=== PATIENT | female | born 1990 | race Hispanic/Latino ===

== ENCOUNTER 2019-03-02 13:58 | Inpatient (IN) | payer MEDICAID ==
[2019-03-02] MEDS ORDERED: LACTATED RINGERS 1,000 ML ONE (14:24)
[2019-03-02] MEDS ORDERED: LACTATED RINGERS 500 ML IV ONE ×2 (14:24→14:26)
[2019-03-02] MEDS ORDERED: MAGNESIUM SULFATE 40GM/1000ML 40 GM/1,000 ML BAG IV ONE ×2 (14:25→14:31)
[2019-03-02] MEDS ORDERED: MAGNESIUM SULFATE 4GM/100ML 4 GM/100 ML BAG IV ONE (14:26)
[2019-03-02] MEDS ORDERED: BRETHINE SUB-Q ONE (14:37)
[2019-03-02 14:55] LABS: Hematocrit 36.3 % (30.3-42.9); Hemoglobin 12.4 gm/dl (10.1-14.3); Mean Corpuscular HGB Conc 34 % (30-34); Mean Corpuscular Volume 86 fl (79-97); Platelet Count 194 K/mm3 (140-440); Red Blood Count 4.22 M/mm3 (3.65-5.03); Red Cell Distribution Width 12.8 % (13.2-15.2)
[2019-03-02] MEDS ORDERED: MAGNESIUM SULFATE 40GM/1000ML 40 GM/1,000 ML BAG IV SCH (15:00)
--- NOTE | 2019-03-02 15:24 | Ultrasound Report ---
US OB limited INDICATION / CLINICAL INFORMATION: presentation. COMPARISON: None available. FINDINGS: heart rate is 158. lie is cephalic. The cervix appears mildly dilated. IMPRESSION: 1. lie is currently cephalic. 2. The cervix is dilated. Signer Name: Darell Guzman MD Signed: 03/02/2019 3:19 PM Workstation Name: [id number]
[2019-03-02 15:36] LABS: Band Neutrophils # (Manual) 0.3 K/mm3; Basophils % (Manual) 0 % (0.0-1.8); Eosinophils % (Manual) 0 % (0.0-4.3); Total Cells Counted 100
[2019-03-02 15:37] LABS: Platelet Estimate Consistent w Auto; RBC Morphology Normal
[2019-03-02 15:42] LABS: Hepatitis C Virus Antibody Non-Reactive (NonReactive)
[2019-03-02 15:53] LABS: Amphetamine Screen,Urine PRESUMPTIVE NEGATIVE; Benzodiazepines Screen,Urine PRESUMPTIVE NEGATIVE; Cannabinoid Screen,Urine PRESUMPTIVE NEGATIVE; Cocaine Screen,Urine PRESUMPTIVE NEGATIVE; Methadone Screen,Urine PRESUMPTIVE NEGATIVE; Opiate Screen,Urine PRESUMPTIVE NEGATIVE
[2019-03-02 15:54] LABS: Amorphous Crystals,Urine Few; Bilirubin,Urine NEG (Negative); Blood,Urine NEG (Negative); Color,Urine Yellow (Yellow); Mucus,Urine 2+ /HPF; Protein,Urine <15 mg/dL mg/dL (Negative); Urobilinogen,Urine < 2.0 mg/dL (<2.0)
[2019-03-02] MEDS: CELESTONE SOLUSPAN IM SCH (16:00)
[2019-03-02] MEDS ORDERED: TYLENOL PO PRN (17:28)
[2019-03-02] MEDS: AMPICILLIN/NS 2 GM/100 ML 2 GM/100 ML BAG IV SCH (17:50)
[2019-03-02] MEDS ORDERED: CALCIUM GLUCONATE 1,000 MG in NACL 0.9% 100 ML IV ONE (20:08)
--- NOTE | 2019-03-02 20:26 | Consultation ---
Consult Note - Parent Education I met with parent(s) and discussed the following:: Need for NICU admission, Poss ible need for intubation and surfactant or other resp support, Temperature regulation, Head ultrasounds to evaluate IVH, Eye exams for ROP screening, Possible need for IV fluids/TPN and IV antibiotics, Possible need for umbilical lines, Importance of providing breast milk & encouraged pumping aft delivery (Mother is interested in and bottle feeding), Donor breast milk if baby meets criteria after , Slow feeding advancement and monitoring of tolerance. NG/OG feeds, Need to monitor for jaundice, Data for survival & survival without significant co-morbidities Parent(s) demonstrated understanding of all the information:: No Assessment and Plan - Assessment Gestation:: 32.6 (32 6/7 weeker) Estimated Weight: N/A Baby's gender: Female Baby's name: Helen Additional Comment: 28YO mother admitted for PT contractions. PJ 04/21/19; 32 6/7 weeker. Mother is on mag and received x1 dose of betamethasone. - Plan Plan: Agree with Mag & steroids Will attend delivery Please call NICU with questions
[2019-03-02] MEDS: INDOCIN PO SCH (20:38)
--- NOTE | 2019-03-02 23:17 | History and Physical Report ---
History of Present Illness Date of examination: 03/02/19 Date of admission: 03/02/19 14:27 Chief complaint: contractions History of present illness: 28y/o @ 32+6 weeks presents with regular uterine contractions and cervical dilation of 5cm. She denied leakage of fluid. The patient has received care @ [facility]. She denies any complications during the . She reports a prior term delivery with her previous . Ultrasound performed confirmed vertex presentation. Patient denies any significant precipitating event for labor besides recent intercourse. Past History Past Medical History: no pertinent history Past Surgical History: no surgical history Social history: single - Obstetrical History Expected Date of Delivery: 04/21/19 Actual Gestation: 32 Week(s) 6 Day(s) : 2 Para: 1 Hx # Term Pregnancies: 1 Number of Pregnancies: 0 Spontaneous Abortions: 0 Induced : 0 Number of Living Children: 1 Medications and Allergies Allergies Allergy/AdvReac Type Severity Reaction Status Date / Time No Known Allergies Allergy Unverified 03/02/19 14:00 Active Meds: Active Medications Acetaminophen (Tylenol) 650 mg PO Q6H PRN PRN Reason: Pain, Mild (1-3) Last Admin: 03/02/19 17:50 Dose: 650 mg Documented by: Betamethasone Acet/Betameth SodPhos (Celestone Soluspan) 12 mg IM Q24HR PIERO Last Admin: 03/02/19 16:00 Dose: 12 mg Documented by: Magnesium Sulfate (Magnesium Sulfate 40gm/1000ml) 40 gm in 1,000 mls @ 50 mls/hr IV DIRECT PIERO Lactated Ringer's (Lactated Ringers) 1,000 mls @ 75 mls/hr IV DIRECT PIERO Magnesium Sulfate (Magnesium Sulfate 40gm/1000ml) 40 gm in 1,000 mls @ 100 mls/hr IV BOLUS ONE Stop: 03/03/19 00:30 Ampicillin Sodium (Ampicillin/Ns 2 Gm/100 Ml) 2 gm in 100 mls @ 100 mls/hr IV Q6HR [facility]; Protocol Last Admin: 03/02/19 17:50 Dose: 100 mls/hr Documented by: Indomethacin (Indocin) 25 mg PO Q8HR PIERO Last Admin: 03/02/19 20:38 Dose: 25 mg Documented by: Review of Systems All systems: negative Genitourinary: vaginal discharge, pelvic pain, contractions, no vaginal bleeding, no leakage of fluid - Vital Signs Vital signs: Vital Signs Temp Pulse Resp 100.2 F H 104 H 20 03/02/19 14:41 03/02/19 14:41 03/02/19 14:41 Temp Pulse Resp BP Pulse Ox 98.9 F 113 H 24 106/63 96 03/02/19 19:19 03/02/19 23:06 03/02/19 22:09 03/02/19 23:05 03/02/19 23:06 - Physical Exam Breasts: Positive: deferred Cardiovascular: Regular rate Lungs: Positive: Clear to auscultation - Obstetrical Cervical Dilatation: 5 Results Result Diagrams: 03/02/19 14:24 Abnormal lab results 03/02/19 Range/Units 14:24 WBC 27.1 H (4.5-11.0) K/mm3 RDW 12.8 L (13.2-15.2) % Seg Neuts % (Manual) 89.0 H (40.0-70.0) % Lymphocytes % (Manual) 5.0 L (13.4-35.0) % Seg Neutrophils # Man 24.1 H (1.8-7.7) K/mm3 Monocytes # (Manual) 1.4 H (0.0-0.8) K/mm3 All other labs normal. Assessment and Plan - Patient Problems (1) labor Current Visit: Yes Status: Acute Plan to address problem: initiate magnesium sulfate and indocin for tocolysis administer betamethasone for lung maturity start antibiotics NICU consult
[2019-03-03] MEDS: LACTATED RINGERS 1,000 ML IV SCH ×2 (04:36→20:39)
[2019-03-03] MEDS: INDOCIN PO SCH ×4 (04:36→22:25)
[2019-03-03] MEDS: AMPICILLIN/NS 2 GM/100 ML 2 GM/100 ML BAG IV SCH ×4 (06:05→18:00)
--- NOTE | 2019-03-03 07:58 | Progress Note ---
Assessment and Plan A: IUP at 33w0d Leukocytosis labor on mag sulfate and indomethacin s/p one dose of betamethsone s/p NICU consult P: Continue current management. Closely monitor maternal and status Subjective - Subjective Date of service: 03/03/19 Principal diagnosis: labor, 33 wks Interval history: Pt reports fewer contractions. No vaginal bleeding. No leakage of fluid. Patient reports: movement normal, contractions (per HPI ), no new complaints, no loss of fluid, no vaginal bleeding Objective - Vital Signs Vital Signs: Vital Signs - 12hr 03/02/19 03/02/19 03/02/19 19:56 20:01 20:06 Pulse Rate 118 H 124 H 123 H Respiratory Rate Blood Pressure 109/61 Blood Pressure [Left] O2 Sat by Pulse 96 97 97 Oximetry 03/02/19 03/02/19 03/02/19 20:11 20:16 20:21 Pulse Rate 120 H 121 H 122 H Respiratory Rate Blood Pressure Blood Pressure [Left] O2 Sat by Pulse 95 96 96 Oximetry 03/02/19 03/02/19 03/02/19 20:26 20:31 20:36 Pulse Rate 118 H 123 H 120 H Respiratory Rate Blood Pressure Blood Pressure [Left] O2 Sat by Pulse 96 95 98 Oximetry 03/02/19 03/02/19 03/02/19 20:41 20:46 20:51 Pulse Rate 120 H 119 H 123 H Respiratory Rate Blood Pressure Blood Pressure [Left] O2 Sat by Pulse 96 96 96 Oximetry 03/02/19 03/02/19 03/02/19 20:56 20:59 21:01 Pulse Rate 116 H 118 H 119 H Respiratory Rate Blood Pressure Blood Pressure [Left] O2 Sat by Pulse 97 94 97 Oximetry 03/02/19 03/02/19 03/02/19 21:02 21:06 21:11 Pulse Rate 116 H 109 H 115 H Respiratory 18 Rate Blood Pressure 120/68 Blood Pressure [Left] O2 Sat by Pulse 97 96 98 Oximetry 03/02/19 03/02/19 03/02/19 21:16 21:21 21:26 Pulse Rate 113 H 114 H 112 H Respiratory Rate Blood Pressure Blood Pressure [Left] O2 Sat by Pulse 97 96 96 Oximetry 03/02/19 03/02/19 03/02/19 21:31 21:36 21:41 Pulse Rate 116 H 112 H 114 H Respiratory Rate Blood Pressure Blood Pressure [Left] O2 Sat by Pulse 97 96 96 Oximetry 03/02/19 03/02/19 03/02/19 21:46 21:51 21:56 Pulse Rate 111 H 111 H 109 H Respiratory Rate Blood Pressure Blood Pressure [Left] O2 Sat by Pulse 96 96 95 Oximetry 03/02/19 03/02/19 03/02/19 22:00 22:01 22:05 Pulse Rate 109 H 110 H 115 H Respiratory Rate Blood Pressure 107/65 Blood Pressure [Left] O2 Sat by Pulse 94 96 Oximetry 03/02/19 03/02/19 03/02/19 22:09 22:36 22:54 Pulse Rate 114 H 118 H 118 H Respiratory 24 Rate Blood Pressure Blood Pressure 107/65 [Left] O2 Sat by Pulse 96 96 94 Oximetry 03/02/19 03/02/19 03/02/19 23:05 23:06 23:36 Pulse Rate 112 H 113 H 107 H Respiratory Rate Blood Pressure 106/63 Blood Pressure [Left] O2 Sat by Pulse 96 96 Oximetry 03/03/19 03/03/19 03/03/19 00:05 00:06 00:36 Pulse Rate 108 H 114 H 115 H Respiratory Rate Blood Pressure 89/50 Blood Pressure [Left] O2 Sat by Pulse 97 96 Oximetry 03/03/19 03/03/19 03/03/19 00:53 01:06 01:15 Pulse Rate 116 H 114 H Respiratory 18 Rate Blood Pressure 108/65 Blood Pressure [Left] O2 Sat by Pulse 94 96 Oximetry 03/03/19 03/03/19 03/03/19 01:36 01:54 02:05 Pulse Rate 109 H 104 H 96 H Respiratory Rate Blood Pressure 99/58 Blood Pressure [Left] O2 Sat by Pulse 96 94 Oximetry 03/03/19 03/03/19 03/03/19 02:06 02:26 02:36 Pulse Rate 98 H 104 H 101 H Respiratory Rate Blood Pressure Blood Pressure [Left] O2 Sat by Pulse 96 94 96 Oximetry 03/03/19 03/03/19 03/03/19 02:51 03:03 03:05 Pulse Rate 104 H 95 H 94 H Respiratory Rate Blood Pressure 103/62 Blood Pressure [Left] O2 Sat by Pulse 93 93 Oximetry 03/03/19 03/03/19 03/03/19 03:06 03:10 03:36 Pulse Rate 92 H 91 H Respiratory 12 Rate Blood Pressure Blood Pressure [Left] O2 Sat by Pulse 95 95 95 Oximetry 03/03/19 03/03/19 03/03/19 03:37 04:00 04:05 Pulse Rate 95 H 95 H 94 H Respiratory 12 Rate Blood Pressure 87/53 Blood Pressure [Left] O2 Sat by Pulse 94 96 Oximetry 03/03/19 03/03/19 03/03/19 04:06 04:36 05:05 Pulse Rate 96 H 93 H 90 Respiratory Rate Blood Pressure 99/58 Blood Pressure [Left] O2 Sat by Pulse 96 98 Oximetry 03/03/19 03/03/19 03/03/19 05:06 05:36 06:05 Pulse Rate 90 89 90 Respiratory Rate Blood Pressure 104/68 Blood Pressure [Left] O2 Sat by Pulse 96 96 Oximetry 03/03/19 03/03/19 03/03/19 06:06 06:21 06:28 Pulse Rate 89 104 H 93 H Respiratory Rate Blood Pressure Blood Pressure [Left] O2 Sat by Pulse 96 94 94 Oximetry 03/03/19 03/03/19 03/03/19 06:36 06:43 07:05 Pulse Rate 89 100 H 92 H Respiratory Rate Blood Pressure 86/51 Blood Pressure [Left] O2 Sat by Pulse 95 94 94 Oximetry 03/03/19 03/03/19 07:06 07:36 Pulse Rate 93 H 97 H Respiratory Rate Blood Pressure Blood Pressure [Left] O2 Sat by Pulse 96 98 Oximetry - Exam Breasts: deferred Cardiovascular: Regular rate Lungs: Clear to auscultation Abdomen: Present: soft (gravid ) Uterus: Present: normal (gravid ) FHR: auscultation normal Uterine Contraction Monitor Mode: External Cervical Dilatation: 5 Cervical Effacement Percentage: 100 station: -3 Uterine Contraction Pattern: Irregular Uterine Tone Measurement Phase: Resting Uterine Contraction Intensity: Mild Extremities: normal (SCDs in place ) - Labs Labs: Abnormal Labs 03/02/19 03/03/19 14:24 02:24 WBC 27.1 H RDW 12.8 L Seg Neuts % (Manual) 89.0 H Lymphocytes % (Manual) 5.0 L Seg Neutrophils # Man 24.1 H Monocytes # (Manual) 1.4 H Magnesium 5.50 H Laboratory Results - last 24 hr 03/02/19 03/02/19 03/02/19 14:24 14:24 14:24 WBC 27.1 H RBC 4.22 Hgb 12.4 Hct 36.3 MCV 86 MCH 29 MCHC 34 RDW 12.8 L Plt Count 194 Add Manual Diff Complete Total Counted 100 Seg Neuts % (Manual) 89.0 H Band Neutrophils % 1.0 Lymphocytes % (Manual) 5.0 L Reactive Lymphs % (Man) 0 Monocytes % (Manual) 5.0 Eosinophils % (Manual) 0 Basophils % (Manual) 0 Metamyelocytes % 0 Myelocytes % 0 Promyelocytes % 0 Blast Cells % 0 Nucleated RBC % Not Reportable Seg Neutrophils # Man 24.1 H Band Neutrophils # 0.3 Lymphocytes # (Manual) 1.4 Abs React Lymphs (Man) 0.0 Monocytes # (Manual) 1.4 H Eosinophils # (Manual) 0.0 Basophils # (Manual) 0.0 Metamyelocytes # 0.0 Myelocytes # 0.0 Promyelocytes # 0.0 Blast Cells # 0.0 WBC Morphology Not Reportable Hypersegmented Neuts Not Reportable Hyposegmented Neuts Not Reportable Hypogranular Neuts Not Reportable Smudge Cells Not Reportable Toxic Granulation Not Reportable Toxic Vacuolation Not Reportable Dohle Bodies Not Reportable Pelger-Huet Anomaly Not Reportable Christiano Rods Not Reportable Platelet Estimate Consistent w auto Clumped Platelets Not Reportable Plt Clumps, EDTA Not Reportable Large Platelets Not Reportable Giant Platelets Not Reportable Platelet Satelliting Not Reportable Plt Morphology Comment Not Reportable RBC Morphology Normal Dimorphic RBCs Not Reportable Polychromasia Not Reportable Hypochromasia Not Reportable Poikilocytosis Not Reportable Anisocytosis Not Reportable Microcytosis Not Reportable Macrocytosis Not Reportable Spherocytes Not Reportable Pappenheimer Bodies Not Reportable Sickle Cells Not Reportable Target Cells Not Reportable Tear Drop Cells Not Reportable Ovalocytes Not Reportable Helmet Cells Not Reportable Muñoz-[place] Bodies Not Reportable [place] Rings Not Reportable Demetrio Cells Not Reportable Bite Cells Not Reportable Crenated Cell Not Reportable Elliptocytes Not Reportable Acanthocytes (Spur) Not Reportable Rouleaux Not Reportable Hemoglobin C Crystals Not Reportable Schistocytes Not Reportable Malaria parasites Not Reportable Dimas Bodies Not Reportable Hem Pathologist Commnt No Magnesium Urine Color Urine Turbidity Urine pH Ur Specific [place] Urine Protein Urine Glucose (UA) Urine Ketones Urine Blood Urine Nitrite Urine Bilirubin Urine Urobilinogen Ur Leukocyte Esterase Urine WBC (Auto) Urine RBC (Auto) Amorphous Crystals Urine Mucus Urine Opiates Screen Urine Methadone Screen Ur Barbiturates Screen Ur Phencyclidine Scrn Ur Amphetamines Screen U Benzodiazepines Scrn Urine Cocaine Screen U Marijuana (THC) Screen Drugs of Abuse Note RPR Hep Bs Antigen Non-reactive Hepatitis C Antibody Non-reactive HIV 1&2 Antibody Rapid Not Reportable HIV P24 Antigen Not Reportable Rubella IgG Antibody Immune Blood Type Antibody Screen 03/02/19 03/02/19 03/02/19 14:24 14:24 Unknown WBC RBC Hgb Hct MCV MCH MCHC RDW Plt Count Add Manual Diff Total Counted Seg Neuts % (Manual) Band Neutrophils % Lymphocytes % (Manual) Reactive Lymphs % (Man) Monocytes % (Manual) Eosinophils % (Manual) Basophils % (Manual) Metamyelocytes % Myelocytes % Promyelocytes % Blast Cells % Nucleated RBC % Seg Neutrophils # Man Band Neutrophils # Lymphocytes # (Manual) Abs React Lymphs (Man) Monocytes # (Manual) Eosinophils # (Manual) Basophils # (Manual) Metamyelocytes # Myelocytes # Promyelocytes # Blast Cells # WBC Morphology Hypersegmented Neuts Hyposegmented Neuts Hypogranular Neuts Smudge Cells Toxic Granulation Toxic Vacuolation Dohle Bodies Pelger-Huet Anomaly Christiano Rods Platelet Estimate Clumped Platelets Plt Clumps, EDTA Large Platelets Giant Platelets Platelet Satelliting Plt Morphology Comment RBC Morphology Dimorphic RBCs Polychromasia Hypochromasia Poikilocytosis Anisocytosis Microcytosis Macrocytosis Spherocytes Pappenheimer Bodies Sickle Cells Target Cells Tear Drop Cells Ovalocytes Helmet Cells Muñoz-[place] Bodies [place] Rings [place] Cells Bite Cells Crenated Cell Elliptocytes Acanthocytes (Spur) Rouleaux Hemoglobin C Crystals Schistocytes Malaria parasites Dimas Bodies Hem Pathologist Commnt Magnesium Urine Color Yellow Urine Turbidity Slightly-cloudy Urine pH 7.0 Ur Specific [place] 1.018 Urine Protein <15 mg/dl Urine Glucose (UA) Neg Urine Ketones 80 Urine Blood Neg Urine Nitrite Neg Urine Bilirubin Neg Urine Urobilinogen < 2.0 Ur Leukocyte Esterase Neg Urine WBC (Auto) 2.0 Urine RBC (Auto) 3.0 Amorphous Crystals Few Urine Mucus 2+ Urine Opiates Screen Urine Methadone Screen Ur Barbiturates Screen Ur Phencyclidine Scrn Ur Amphetamines Screen U Benzodiazepines Scrn Urine Cocaine Screen U Marijuana (THC) Screen Drugs of Abuse Note RPR Nonreactive Hep Bs Antigen Hepatitis C Antibody HIV 1&2 Antibody Rapid HIV P24 Antigen Rubella IgG Antibody Blood Type O POSITIVE Antibody Screen Negative 03/02/19 03/03/19 Unknown 02:24 WBC RBC Hgb Hct MCV MCH MCHC RDW Plt Count Add Manual Diff Total Counted Seg Neuts % (Manual) Band Neutrophils % Lymphocytes % (Manual) Reactive Lymphs % (Man) Monocytes % (Manual) Eosinophils % (Manual) Basophils % (Manual) Metamyelocytes % Myelocytes % Promyelocytes % Blast Cells % Nucleated RBC % Seg Neutrophils # Man Band Neutrophils # Lymphocytes # (Manual) Abs React Lymphs (Man) Monocytes # (Manual) Eosinophils # (Manual) Basophils # (Manual) Metamyelocytes # Myelocytes # Promyelocytes # Blast Cells # WBC Morphology Hypersegmented Neuts Hyposegmented Neuts Hypogranular Neuts Smudge Cells Toxic Granulation Toxic Vacuolation Dohle Bodies Pelger-Huet Anomaly Christiano Rods Platelet Estimate Clumped Platelets Plt Clumps, EDTA Large Platelets Giant Platelets Platelet Satelliting Plt Morphology Comment RBC Morphology Dimorphic RBCs Polychromasia Hypochromasia Poikilocytosis Anisocytosis Microcytosis Macrocytosis Spherocytes Pappenheimer Bodies Sickle Cells Target Cells Tear Drop Cells Ovalocytes Helmet Cells Muñoz-[place] Bodies [place] Rings [place] Cells Bite Cells Crenated Cell Elliptocytes Acanthocytes (Spur) Rouleaux Hemoglobin C Crystals Schistocytes Malaria parasites Dimas Bodies Hem Pathologist Commnt Magnesium 5.50 H Urine Color Urine Turbidity Urine pH Ur Specific [place] Urine Protein Urine Glucose (UA) Urine Ketones Urine Blood Urine Nitrite Urine Bilirubin Urine Urobilinogen Ur Leukocyte Esterase Urine WBC (Auto) Urine RBC (Auto) Amorphous Crystals Urine Mucus Urine Opiates Screen Presumptive negative Urine Methadone Screen Presumptive negative Ur Barbiturates Screen Presumptive negative Ur Phencyclidine Scrn Presumptive negative Ur Amphetamines Screen Presumptive negative U Benzodiazepines Scrn Presumptive negative Urine Cocaine Screen Presumptive negative U Marijuana (THC) Screen Presumptive negative Drugs of Abuse Note Disclamer RPR Hep Bs Antigen Hepatitis C Antibody HIV 1&2 Antibody Rapid HIV P24 Antigen Rubella IgG Antibody Blood Type Antibody Screen
[2019-03-03] MEDS: CELESTONE SOLUSPAN IM SCH (16:20)
[2019-03-04] MEDS: AMPICILLIN/NS 2 GM/100 ML 2 GM/100 ML BAG IV SCH ×4 (00:05→18:16)
[2019-03-04] MEDS: INDOCIN PO SCH ×3 (06:13→22:49)
[2019-03-04] MEDS: LACTATED RINGERS 1,000 ML IV SCH (11:20)
--- NOTE | 2019-03-04 12:40 | Progress Note ---
Assessment and Plan A: IUP at 33w1d Leukocytosis labor on mag sulfate and indomethacin s/p one dose of betamethsone s/p NICU consult P: Continue current management. Closely monitor maternal and status d/c mag tonight expectant mgt Subjective - Subjective Date of service: 03/04/19 Principal diagnosis: labor, 33 wks Patient reports: movement normal, contractions (per HPI ), no new complaints, no loss of fluid, no vaginal bleeding Objective - Vital Signs Vital Signs: Vital Signs - 12hr 03/04/19 03/04/19 03/04/19 01:05 01:06 01:36 Temperature Pulse Rate 100 H 99 H 95 H Respiratory Rate Blood Pressure 86/51 O2 Sat by Pulse 96 96 Oximetry 03/04/19 03/04/19 03/04/19 02:00 02:05 02:06 Temperature Pulse Rate 96 H 92 H 99 H Respiratory Rate Blood Pressure 96/59 O2 Sat by Pulse 94 98 Oximetry 03/04/19 03/04/19 03/04/19 02:10 02:25 02:36 Temperature Pulse Rate 101 H 97 H 100 H Respiratory Rate Blood Pressure O2 Sat by Pulse 90 91 97 Oximetry 03/04/19 03/04/19 03/04/19 02:44 03:04 03:05 Temperature Pulse Rate 98 H 106 H 96 H Respiratory Rate Blood Pressure 98/60 O2 Sat by Pulse 93 94 Oximetry 03/04/19 03/04/19 03/04/19 03:06 03:36 04:05 Temperature Pulse Rate 97 H 104 H 100 H Respiratory Rate Blood Pressure 106/62 O2 Sat by Pulse 96 97 Oximetry 03/04/19 03/04/19 03/04/19 04:06 04:10 04:36 Temperature Pulse Rate 101 H 107 H 108 H Respiratory Rate Blood Pressure O2 Sat by Pulse 98 94 95 Oximetry 03/04/19 03/04/19 03/04/19 04:56 05:05 05:06 Temperature Pulse Rate 110 H 103 H 103 H Respiratory Rate Blood Pressure 88/54 O2 Sat by Pulse 94 94 96 Oximetry 03/04/19 03/04/19 03/04/19 05:36 05:40 06:05 Temperature 97.4 F L Pulse Rate 103 H 100 H Respiratory Rate Blood Pressure 87/50 O2 Sat by Pulse 96 Oximetry 10/03/04/19 03/04/19 06:06 06:21 06:33 Temperature Pulse Rate 99 H 92 H 102 H Respiratory Rate Blood Pressure O2 Sat by Pulse 96 94 94 Oximetry 03/04/19 03/04/19 03/04/19 06:36 06:52 07:02 Temperature Pulse Rate 93 H 87 99 H Respiratory Rate Blood Pressure O2 Sat by Pulse 95 94 94 Oximetry 03/04/19 03/04/19 03/04/19 07:05 07:06 07:12 Temperature Pulse Rate 90 87 91 H Respiratory Rate Blood Pressure 101/58 O2 Sat by Pulse 94 94 Oximetry 03/04/19 03/04/19 03/04/19 07:26 07:32 07:36 Temperature Pulse Rate 96 H 90 89 Respiratory Rate Blood Pressure O2 Sat by Pulse 94 94 94 Oximetry 03/04/19 03/04/19 03/04/19 07:39 07:41 07:47 Temperature 98.5 F Pulse Rate 92 H 89 94 H Respiratory 16 Rate Blood Pressure O2 Sat by Pulse 95 94 94 Oximetry 03/04/19 03/04/19 03/04/19 07:53 08:01 08:05 Temperature Pulse Rate 99 H 90 93 H Respiratory Rate Blood Pressure 106/54 O2 Sat by Pulse 94 94 Oximetry 03/04/19 03/04/19 03/04/19 08:06 08:07 08:16 Temperature Pulse Rate 92 H 93 H 86 Respiratory Rate Blood Pressure O2 Sat by Pulse 95 94 94 Oximetry 03/04/19 03/04/19 03/04/19 08:35 08:36 08:47 Temperature Pulse Rate 96 H 102 H 103 H Respiratory Rate Blood Pressure O2 Sat by Pulse 94 96 94 Oximetry 03/04/19 03/04/19 03/04/19 09:05 09:06 09:15 Temperature Pulse Rate 96 H 100 H Respiratory 18 Rate Blood Pressure 90/53 O2 Sat by Pulse 96 Oximetry 03/04/19 03/04/19 03/04/19 09:21 09:28 09:34 Temperature Pulse Rate 93 H 94 H 97 H Respiratory Rate Blood Pressure O2 Sat by Pulse 94 93 94 Oximetry 03/04/19 03/04/19 03/04/19 09:36 09:57 10:05 Temperature Pulse Rate 94 H 98 H 93 H Respiratory Rate Blood Pressure 90/53 O2 Sat by Pulse 95 94 Oximetry 03/04/19 03/04/19 03/04/19 10:06 10:33 10:36 Temperature Pulse Rate 95 H 96 H Respiratory 16 Rate Blood Pressure O2 Sat by Pulse 96 96 Oximetry 03/04/19 03/04/19 03/04/19 10:44 11:03 11:05 Temperature Pulse Rate 99 H 102 H 97 H Respiratory Rate Blood Pressure 104/59 O2 Sat by Pulse 94 94 Oximetry 03/04/19 03/04/19 03/04/19 11:06 11:26 11:36 Temperature 97.9 F Pulse Rate 103 H 93 H Respiratory 18 Rate Blood Pressure O2 Sat by Pulse 96 97 96 Oximetry 03/04/19 03/04/19 03/04/19 11:43 11:50 12:05 Temperature Pulse Rate 93 H 98 H 88 Respiratory Rate Blood Pressure 100/61 O2 Sat by Pulse 94 94 Oximetry 03/04/19 03/04/19 03/04/19 12:06 12:13 12:36 Temperature Pulse Rate 96 H 95 H 97 H Respiratory Rate Blood Pressure O2 Sat by Pulse 96 93 96 Oximetry - Exam Breasts: normal Cardiovascular: Regular rate, Normal S1 Lungs: Clear to auscultation, Normal air movement Abdomen: Present: normal appearance, soft, normal bowel sounds. Absent: distention, tenderness, guarding Vulva: both: normal Uterus: Present: normal, firm. Absent: bogginess, tenderness FHR: auscultation normal - Labs Labs: Abnormal Labs 03/02/19 03/03/19 03/03/19 14:24 02:24 09:53 WBC 27.1 H RDW 12.8 L Seg Neuts % (Manual) 89.0 H Lymphocytes % (Manual) 5.0 L Seg Neutrophils # Man 24.1 H Monocytes # (Manual) 1.4 H Magnesium 5.50 H 6.00 H 03/03/19 03/03/19 03/04/19 13:31 19:30 01:57 WBC RDW Seg Neuts % (Manual) Lymphocytes % (Manual) Seg Neutrophils # Man Monocytes # (Manual) Magnesium 5.70 H 6.00 H 6.10 H 03/04/19 08:46 WBC RDW Seg Neuts % (Manual) Lymphocytes % (Manual) Seg Neutrophils # Man Monocytes # (Manual) Magnesium 6.00 H Laboratory Results - last 24 hr 03/03/19 03/03/19 03/04/19 13:31 19:30 01:57 Magnesium 5.70 H 6.00 H 6.10 H 03/04/19 08:46 Magnesium 6.00 H
[2019-03-05] MEDS: AMPICILLIN/NS 2 GM/100 ML 2 GM/100 ML BAG IV SCH ×4 (00:18→18:49)
[2019-03-05] MEDS: LACTATED RINGERS 1,000 ML IV SCH (03:15)
[2019-03-05] MEDS: INDOCIN PO SCH ×2 (06:18→14:35)
--- NOTE | 2019-03-05 09:13 | Progress Note ---
Assessment and Plan A: IUP at 33w2d Leukocytosis labor on mag sulfate and indomethacin s/p one dose of betamethsone s/p NICU consult P: Continue current management. Closely monitor maternal and status d/c mag expectant mgt Subjective - Subjective Date of service: 03/05/19 Principal diagnosis: labor, 33 wks Patient reports: movement normal, contractions (per HPI ), no new co mplaints, no loss of fluid, no vaginal bleeding Objective - Vital Signs Vital Signs: Vital Signs - 12hr 03/04/19 03/04/19 03/04/19 21:18 21:36 22:06 Temperature Pulse Rate 98 H 104 H 99 H Respiratory Rate Blood Pressure O2 Sat by Pulse 94 95 95 Oximetry 03/04/19 03/04/19 03/04/19 22:36 23:06 23:22 Temperature Pulse Rate 105 H 110 H 90 Respiratory Rate Blood Pressure O2 Sat by Pulse 97 96 94 Oximetry 03/04/19 03/05/19 03/05/19 23:36 00:05 00:06 Temperature Pulse Rate 117 H 112 H 111 H Respiratory Rate Blood Pressure O2 Sat by Pulse 97 94 96 Oximetry 03/05/19 03/05/19 03/05/19 00:36 00:55 01:06 Temperature Pulse Rate 115 H 107 H 109 H Respiratory Rate Blood Pressure O2 Sat by Pulse 95 94 96 Oximetry 03/05/19 03/05/19 03/05/19 01:30 01:36 01:37 Temperature Pulse Rate 97 H 98 H 92 H Respiratory Rate Blood Pressure O2 Sat by Pulse 94 96 94 Oximetry 03/05/19 03/05/19 03/05/19 01:42 01:47 01:53 Temperature Pulse Rate 104 H 104 H 105 H Respiratory Rate Blood Pressure O2 Sat by Pulse 94 94 94 Oximetry 03/05/19 03/05/19 03/05/19 01:59 02:06 02:36 Temperature Pulse Rate 91 H 98 H 89 Respiratory Rate Blood Pressure O2 Sat by Pulse 93 96 96 Oximetry 03/05/19 03/05/19 03/05/19 03:01 03:06 03:12 Temperature Pulse Rate 88 69 89 Respiratory Rate Blood Pressure 104/63 O2 Sat by Pulse 94 95 Oximetry 03/05/19 03/05/19 03/05/19 03:14 03:29 03:35 Temperature Pulse Rate 67 87 90 Respiratory Rate Blood Pressure O2 Sat by Pulse 92 94 94 Oximetry 03/05/19 03/05/19 03/05/19 03:36 03:43 03:51 Temperature Pulse Rate 90 87 82 Respiratory Rate Blood Pressure O2 Sat by Pulse 95 94 94 Oximetry 03/05/19 03/05/19 03/05/19 04:02 04:05 04:06 Temperature Pulse Rate 81 77 82 Respiratory Rate Blood Pressure 98/57 O2 Sat by Pulse 92 92 Oximetry 03/05/19 03/05/19 03/05/19 04:11 04:36 04:40 Temperature Pulse Rate 80 76 75 Respiratory Rate Blood Pressure O2 Sat by Pulse 88 91 92 Oximetry 03/05/19 03/05/19 03/05/19 05:05 05:06 05:12 Temperature Pulse Rate 74 74 70 Respiratory Rate Blood Pressure 96/52 O2 Sat by Pulse 92 94 Oximetry 03/05/19 03/05/19 03/05/19 05:30 05:36 05:41 Temperature Pulse Rate 72 75 Respiratory Rate Blood Pressure O2 Sat by Pulse 84 96 94 Oximetry 03/05/19 03/05/19 03/05/19 05:46 05:54 05:59 Temperature Pulse Rate 81 75 76 Respiratory Rate Blood Pressure O2 Sat by Pulse 93 94 94 Oximetry 03/05/19 03/05/19 03/05/19 06:05 06:06 06:07 Temperature Pulse Rate 78 91 H 88 Respiratory Rate Blood Pressure 98/65 O2 Sat by Pulse 94 96 Oximetry 03/05/19 03/05/19 03/05/19 06:10 06:36 06:43 Temperature Pulse Rate 91 H 82 78 Respiratory Rate Blood Pressure O2 Sat by Pulse 94 96 94 Oximetry 03/05/19 03/05/19 03/05/19 06:48 06:53 07:00 Temperature Pulse Rate 77 79 82 Respiratory Rate Blood Pressure O2 Sat by Pulse 94 94 94 Oximetry 03/05/19 03/05/19 03/05/19 07:05 07:06 07:16 Temperature Pulse Rate 82 81 94 H Respiratory Rate Blood Pressure 86/53 O2 Sat by Pulse 93 94 Oximetry 03/05/19 03/05/19 03/05/19 07:22 07:29 07:36 Temperature Pulse Rate 85 78 76 Respiratory Rate Blood Pressure O2 Sat by Pulse 94 93 93 Oximetry 03/05/19 03/05/19 03/05/19 07:40 07:52 07:58 Temperature 98.2 F Pulse Rate 77 78 74 Respiratory 18 Rate Blood Pressure 96/59 O2 Sat by Pulse 94 92 93 Oximetry 03/05/19 03/05/19 03/05/19 08:05 08:06 08:10 Temperature Pulse Rate 73 73 74 Respiratory Rate Blood Pressure 99/55 O2 Sat by Pulse 93 93 92 Oximetry 03/05/19 03/05/19 03/05/19 08:19 08:32 08:36 Temperature Pulse Rate 78 72 80 Respiratory Rate Blood Pressure O2 Sat by Pulse 93 93 93 Oximetry 03/05/19 03/05/19 03/05/19 08:57 09:04 09:05 Temperature Pulse Rate 72 74 69 Respiratory Rate Blood Pressure 95/55 O2 Sat by Pulse 93 94 Oximetry 03/05/19 03/05/19 09:06 09:10 Temperature Pulse Rate 73 71 Respiratory Rate Blood Pressure O2 Sat by Pulse 94 94 Oximetry - Exam Breasts: normal Cardiovascular: Regular rate, Normal S1 Lungs: Clear to auscultation, Normal air movement Abdomen: Present: normal appearance, soft, normal bowel sounds. Absent: distention, tenderness, guarding Vulva: both: normal Uterus: Present: normal, firm, fundal height below umbilicus. Absent: bogginess, tenderness FHR: auscultation normal Extremities: normal Deep Tendon Reflex Grade: Normal +2 - Labs Labs: Abnormal Labs 03/02/19 03/03/19 03/03/19 14:24 02:24 09:53 WBC 27.1 H RDW 12.8 L Seg Neuts % (Manual) 89.0 H Lymphocytes % (Manual) 5.0 L Seg Neutrophils # Man 24.1 H Monocytes # (Manual) 1.4 H Magnesium 5.50 H 6.00 H 03/03/19 03/03/19 03/04/19 13:31 19:30 01:57 WBC RDW Seg Neuts % (Manual) Lymphocytes % (Manual) Seg Neutrophils # Man Monocytes # (Manual) Magnesium 5.70 H 6.00 H 6.10 H 03/04/19 03/04/19 08:46 15:21 WBC RDW Seg Neuts % (Manual) Lymphocytes % (Manual) Seg Neutrophils # Man Monocytes # (Manual) Magnesium 6.00 H 5.90 H Laboratory Results - last 24 hr 03/04/19 03/04/19 08:46 15:21 Magnesium 6.00 H 5.90 H
[2019-03-05 11:54] LABS: HIV-1 Antibody Differentiation SEE SCANNED RESULT; HIV-2 Antibody Differentiation SEE SCANNED RESULT
--- NOTE | 2019-03-05 13:22 | Event Note ---
Date: 03/05/19 Patient doing well. Cervix remains Patient desires to be transferred to [facility] from her PCP Dr. Elena. Left a message. Awaiting return call
[2019-03-05 16:06] VITALS: BP 117/79
== END 2019-03-05 19:15 | disposition short-term general hospital (02) | DRG 778 ==
LOC: TRG 13:58 → LD 14:27
PROVIDERS: ADMIT Obstetrics & Gynecology; ATTEND Obstetrics & Gynecology
DX: O60.03 Preterm labor without delivery, third trimester (principal); D72.829 Elevated white blood cell count, unspecified; O99.113 Other diseases of the blood and blood-forming organs and certain disorders involving the immune mechanism complicating pregnancy, third trimester; Z3A.32 32 weeks gestation of pregnancy
CPT/HCPCS: 36415; 76815; 80307; 81001; 83735; 85007; 85025; 86592; 86689; 86706; 86762; 86803; 86850; 86900; 86901; 87806; G0378; J0290; J0610; J0702; J3105; J3475; J7120